=== PATIENT | female | born 2000 | race Caucasian/White ===

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

== ENCOUNTER 2020-02-18 22:49 | Inpatient (IN) | payer MEDICAID ==
[~2020-02-18] VITALS: Ht 167.6 cm; Wt 81.9 kg
[2020-02-18] MEDS ORDERED: QUEtiapine FUMARATE 100 MG TABLET PO ONE (23:45)
[2020-02-19 01:36] LABS: BASOPHILS % (AUTO) 0.4 % (0.0-2.0); EOSINOPHILS % (AUTO) 0 % (1.0-6.0); HEMATOCRIT 37.3 % (36-46); HEMOGLOBIN 12.3 g/dL (12.0-16.0); LYMPHOCYTES # (AUTO) 1.3 K/uL (1.0-4.8); MEAN CORPUSCULAR HEMOGLOBIN 30.5 pg (26.0-34.0); MEAN CORPUSCULAR HGB CONC 33.1 G/dL (31.0-37.0); MEAN CORPUSCULAR VOLUME 92 fL (80-100); MONOCYTES # (AUTO) 0.6 K/uL (0.1-1.0); MONOCYTES % (AUTO) 8.8 % (2.0-9.0); NEUTROPHILS # (AUTO) 5.2 K/uL (1.8-7.7); NEUTROPHILS % (AUTO) 72.8 % (40.0-70.0); PLATELET COUNT (AUTO) 275 K/uL (150-450); RED BLOOD CELL COUNT(AUTO) 4.04 MIL/uL (4.00-5.20); RED CELL DISTRIBUTION WIDTH 12.6 % (11.5-14.5)
[2020-02-19 01:40] LABS: ANION GAP 11 mmol/L (8-16); CALCIUM, TOTAL 8.9 mg/dL (8.8-10.5); CARBON DIOXIDE 25 mmol/L (22-29); CHLORIDE 103 mmol/L (98-107); CREATININE 0.83 mg/dL (0.60-1.30); GLOMERULAR FILTR. RATE CALC > 60 mL/min (>60); GLUCOSE,RANDOM 77 mg/dL (70-110); POTASSIUM 4.1 mmol/L (3.5-5.1); SODIUM SERUM 139 mmol/L (136-145); UREA NITROGEN, BLOOD 14 mg/dL (7-18)
[2020-02-19 01:49] LABS: ALANINE AMINOTRANSFERASE 15 U/L (12-78); ALBUMIN 3.5 g/dL (3.4-5.0); ALKALINE PHOSPHATASE 86 U/L (46-116); ASPARTATE AMINOTRANSFERASE 19 U/L (15-37); BILIRUBIN,TOTAL 0.3 mg/dL (0.1-1.0); TOTAL PROTEIN, SERUM 8.4 g/dL (6.4-8.2)
[2020-02-19 02:31] LABS: COVID AG,FIA SOURCE NASOPHARYNGEAL
[2020-02-19] MEDS ORDERED: ZOLPIDEM TARTRATE 10 MG TABLET PO PRN (04:00)
[2020-02-19 04:48] VITALS: BP 103/75
[2020-02-19 08:53] VITALS: BP 128/93
[2020-02-19] MEDS: QUEtiapine FUMARATE 200 MG TABLET PO SCH ×2 (10:37→20:19)
[2020-02-19] MEDS: CarBAMazepine 200 MG TABLET PO SCH ×2 (10:37→16:05)
[2020-02-19] MEDS: LORazepam 2 MG TABLET PO PRN (11:20)
[2020-02-19] MEDS: HALOPERIDOL 5 MG TABLET PO PRN (14:16)
[2020-02-19 16:16] VITALS: BP 116/64
[2020-02-20] MEDS: CarBAMazepine 200 MG TABLET PO SCH ×2 (08:09→16:25)
[2020-02-20] MEDS: QUEtiapine FUMARATE 200 MG TABLET PO SCH ×2 (08:09→20:24)
[2020-02-20] MEDS: LORazepam 2 MG TABLET PO PRN ×2 (08:10→17:04)
[2020-02-20 08:47] VITALS: BP 122/82
[2020-02-20 11:21] LABS: CHOL/HDL RATIO 2.9 (3.9-5.7)
[2020-02-20] MEDS: SERTRALINE HCL 50 MG TABLET PO SCH (12:27)
[2020-02-20 16:00] VITALS: BP 110/70
[2020-02-20] MEDS: HALOPERIDOL 5 MG TABLET PO PRN (17:04)
[2020-02-20 19:46] LABS: APPEARANCE,URINE CLOUDY (CLEAR); BILIRUBIN,URINE NEGATIVE (NEGATIVE); GLUCOSE, URINE (UA) NEGATIVE (NEGATIVE); KETONES,URINE NEGATIVE (NEGATIVE); LEUKOCYTE ESTERASE ,URINE NEGATIVE (NEGATIVE); NITRATE,URINE NEGATIVE (NEGATIVE); OCCULT BLOOD,URINE NEGATIVE (NEGATIVE); PROTEIN,URINE NEGATIVE (NEGATIVE); UROBILINOGEN,URINE 0.2 mg/dL (<=1.0)
[2020-02-20 19:53] LABS: AMPHET/METH SCREEN,URINE NEGATIVE (NEGATIVE); BARBITURATE SCREEN, URINE NEGATIVE (NEGATIVE); BENZODIAZEPINES SCREEN,URINE NEGATIVE (NEGATIVE); CANNABINOID SCREEN,URINE POSITIVE (NEGATIVE); COCAINE SCREEN,URINE NEGATIVE (NEGATIVE); METHADONE SCREEN, URINE NEGATIVE (NEGATIVE); OPIATE SCREEN,URINE NEGATIVE (NEGATIVE)
[2020-02-20 19:57] LABS: PHENCYCLIDINE SCREEN,URINE NEGATIVE (NEGATIVE)
[2020-02-21] MEDS: LORazepam 2 MG TABLET PO PRN ×2 (07:08→16:07)
[2020-02-21 08:01] VITALS: BP 107/76
[2020-02-21] MEDS: HALOPERIDOL 5 MG TABLET PO PRN ×2 (08:02→16:07)
[2020-02-21] MEDS: QUEtiapine FUMARATE 200 MG TABLET PO SCH ×2 (08:02→20:22)
[2020-02-21] MEDS: SERTRALINE HCL 50 MG TABLET PO SCH (08:02)
[2020-02-21] MEDS: CarBAMazepine 200 MG TABLET PO SCH ×2 (08:03→16:07)
[2020-02-21 16:13] VITALS: BP 117/76
[2020-02-22] MEDS: QUEtiapine FUMARATE 200 MG TABLET PO SCH (07:45)
[2020-02-22] MEDS: SERTRALINE HCL 50 MG TABLET PO SCH (07:45)
[2020-02-22] MEDS: CarBAMazepine 200 MG TABLET PO SCH ×2 (07:45→16:05)
[2020-02-22 08:00] VITALS: BP 119/83
[2020-02-22] MEDS: HALOPERIDOL 5 MG TABLET PO PRN ×2 (09:48→17:37)
[2020-02-22] MEDS: LORazepam 2 MG TABLET PO PRN ×2 (10:13→17:37)
[2020-02-22 16:00] VITALS: BP 124/74
[2020-02-22] MEDS: QUEtiapine FUMARATE 300 MG TABLET PO SCH (20:46)
[2020-02-23] MEDS: CarBAMazepine 200 MG TABLET PO SCH (08:07)
[2020-02-23] MEDS: SERTRALINE HCL 50 MG TABLET PO SCH (08:07)
[2020-02-23] MEDS: QUEtiapine FUMARATE 300 MG TABLET PO SCH (08:08)
[2020-02-23] MEDS: LORazepam 2 MG TABLET PO PRN (08:08)
[2020-02-23] MEDS: HALOPERIDOL 5 MG TABLET PO PRN (08:08)
[2020-02-23 08:39] VITALS: BP 126/86
[2020-02-23] MEDS ORDERED: QUET300T2 PO (11:30)
[2020-02-23] MEDS ORDERED: SERT50TA12 PO (11:31)
== END 2020-02-23 13:15 | disposition left against medical advice (07) | DRG 753 ==
LOC: EMS 22:49 → 3EI 02-19 04:00 → 3EC 02-20 17:15
PROVIDERS: ADMIT Psychiatry & Neurology Child & Adolescent Psychiatry; ATTEND Psychiatry & Neurology Child & Adolescent Psychiatry
DX: F31.2 Bipolar disorder, current episode manic severe with psychotic features (principal); Z91.19 Patient's noncompliance with other medical treatment and regimen; F41.9 Anxiety disorder, unspecified; F12.90 Cannabis use, unspecified, uncomplicated; F10.10 Alcohol abuse, uncomplicated; Y90.9 Presence of alcohol in blood, level not specified; Z59.0 Homelessness; Z20.822 Contact with and (suspected) exposure to COVID-19
CPT/HCPCS: 80307; 87081; 87426; G0480

== ENCOUNTER 2020-03-07 11:17 | Inpatient (IN) | payer MEDICAID ==
[~2020-03-07] VITALS: Ht 157.5 cm; Wt 83.0 kg
[~2020-03-07 11:17] MED LIST changes: -LITH300C3 PO; -QUET100T PO; +QUET300T2 PO; +SERT-158 PO
[2020-03-07] MEDS ORDERED: CARB-60 PO (11:52)
[2020-03-07] MEDS ORDERED: CarBAMazepine 200 MG TABLET PO ONE (12:00)
[2020-03-07 12:12] LABS: BASOPHILS % (AUTO) 0.4 % (0.0-2.0); EOSINOPHILS % (AUTO) 0.1 % (1.0-6.0); HEMATOCRIT 36.2 % (36-46); HEMOGLOBIN 12.3 g/dL (12.0-16.0); LYMPHOCYTES # (AUTO) 2.3 K/uL (1.0-4.8); LYMPHOCYTES % (AUTO) 29.6 % (22.0-44.0); MEAN CORPUSCULAR HEMOGLOBIN 31.6 pg (26.0-34.0); MEAN CORPUSCULAR VOLUME 93 fL (80-100); MONOCYTES # (AUTO) 0.6 K/uL (0.1-1.0); MONOCYTES % (AUTO) 7.7 % (2.0-9.0); NEUTROPHILS # (AUTO) 4.8 K/uL (1.8-7.7); NEUTROPHILS % (AUTO) 62.2 % (40.0-70.0); PLATELET COUNT (AUTO) 271 K/uL (150-450); RED BLOOD CELL COUNT(AUTO) 3.89 MIL/uL (4.00-5.20); RED CELL DISTRIBUTION WIDTH 13.7 % (11.5-14.5)
[2020-03-07 12:21] LABS: ANION GAP 9 mmol/L (8-16); CALCIUM, TOTAL 8.5 mg/dL (8.8-10.5); CARBON DIOXIDE 24 mmol/L (22-29); CHLORIDE 103 mmol/L (98-107); CREATININE 0.83 mg/dL (0.60-1.30); GLOMERULAR FILTR. RATE CALC > 60 mL/min (>60); GLUCOSE,RANDOM 90 mg/dL (70-110); POTASSIUM 3.4 mmol/L (3.5-5.1); SODIUM SERUM 136 mmol/L (136-145); UREA NITROGEN, BLOOD 8 mg/dL (7-18)
[2020-03-07 12:27] LABS: ALANINE AMINOTRANSFERASE 31 U/L (12-78); ALBUMIN 3.6 g/dL (3.4-5.0); ALKALINE PHOSPHATASE 83 U/L (46-116); ASPARTATE AMINOTRANSFERASE 30 U/L (15-37); BILIRUBIN,TOTAL 0.4 mg/dL (0.1-1.0); TOTAL PROTEIN, SERUM 8.1 g/dL (6.4-8.2)
[2020-03-07 12:39] LABS: CARBAMAZEPINE (TEGRETOL) < 0.5 mcg/mL (4.0-12.0)
[2020-03-07] MEDS ORDERED: LORazepam 2 MG TABLET PO ONE (13:00)
[2020-03-07 13:05] LABS: COVID AG,FIA SOURCE NASOPHARYNGEAL
[2020-03-07] MEDS ORDERED: DiphenhydrAMINE HCL 50 MG/ML VIAL IM ONE (13:15)
[2020-03-07] MEDS ORDERED: LORazepam 2 MG/ML VIAL IM ONE (13:15)
[2020-03-07] MEDS ORDERED: HALOPERIDOL LACTATE 5 MG/ML VIAL IM ONE (13:15)
[2020-03-07 13:29] LABS: AMPHET/METH SCREEN,URINE NEGATIVE (NEGATIVE); BARBITURATE SCREEN, URINE NEGATIVE (NEGATIVE); BENZODIAZEPINES SCREEN,URINE NEGATIVE (NEGATIVE); CANNABINOID SCREEN,URINE POSITIVE (NEGATIVE); COCAINE SCREEN,URINE NEGATIVE (NEGATIVE); METHADONE SCREEN, URINE NEGATIVE (NEGATIVE); OPIATE SCREEN,URINE NEGATIVE (NEGATIVE); PHENCYCLIDINE SCREEN,URINE NEGATIVE (NEGATIVE)
[2020-03-07] MEDS ORDERED: HALOPERIDOL 5 MG TABLET PO PRN (13:30)
[2020-03-07] MEDS ORDERED: ZOLPIDEM TARTRATE 10 MG TABLET PO PRN (13:30)
[2020-03-07 14:04] LABS: BILIRUBIN,URINE NEGATIVE (NEGATIVE); GLUCOSE, URINE (UA) NEGATIVE (NEGATIVE); KETONES,URINE 40 mg/dL (NEGATIVE); LEUKOCYTE ESTERASE ,URINE NEGATIVE (NEGATIVE); NITRATE,URINE NEGATIVE (NEGATIVE); OCCULT BLOOD,URINE NEGATIVE (NEGATIVE); UROBILINOGEN,URINE 0.2 mg/dL (<=1.0)
[2020-03-07 14:07] LABS: APPEARANCE,URINE CLEAR (CLEAR); PROTEIN,URINE NEGATIVE (NEGATIVE)
[2020-03-07 17:34] VITALS: BP 110/68
[2020-03-07] MEDS ORDERED: POTASSIUM CHLORIDE 20 MEQ ER TABLET PO ONE (18:15)
[2020-03-08] MEDS ORDERED: PETROLATUM,WHITE 28 GM JELLY TP PRN (07:00)
[2020-03-08] MEDS ORDERED: LOPERAMIDE HCL 2 MG CAPSULE PO PRN (07:00)
[2020-03-08] MEDS ORDERED: DOCUSATE SODIUM 100 MG CAPSULE PO PRN (07:00)
[2020-03-08] MEDS ORDERED: ALBUTEROL SULFATE HFA 90 MCG/PUFF 8 GM INHALER IH PRN (07:00)
[2020-03-08] MEDS ORDERED: ACETAMINOPHEN 325 MG TABLET PO PRN (07:00)
[2020-03-08] MEDS ORDERED: GuaiFENesin/D-METHORPHAN [SUGAR-FREE] 200-20MG/10 ML SYRUP UDCUP PO PRN (07:00)
[2020-03-08] MEDS ORDERED: MAG HYDROX/AL HYDROX/SIMETH ES 30 ML SUSPENSION UDCUP PO PRN (07:00)
[2020-03-08] MEDS ORDERED: ONDANSETRON HCL 4 MG TABLET PO PRN (07:00)
[2020-03-08] MEDS ORDERED: NICOTINE 14 MG/24 HOUR PATCH TD PRN (07:00)
[2020-03-08] MEDS ORDERED: CloNIDine HCL 0.1 MG TABLET PO PRN (07:00)
[2020-03-08 07:38] LABS: CHOL/HDL RATIO 2.6 (3.9-5.7); POTASSIUM 3.6 mmol/L (3.5-5.1)
[2020-03-08 08:00] VITALS: BP 93/59
[2020-03-08] MEDS: CarBAMazepine 200 MG ER TABLET PO SCH ×2 (10:27→16:11)
[2020-03-08] MEDS: QUEtiapine FUMARATE 200 MG TABLET PO SCH (12:57)
[2020-03-08] MEDS: SERTRALINE HCL 50 MG TABLET PO SCH (12:57)
[2020-03-08 16:00] VITALS: BP 109/65
[2020-03-08] MEDS ORDERED: QUEtiapine FUMARATE 200 MG TABLET PO SCH (21:00)
[2020-03-09 08:00] VITALS: BP 107/70
[2020-03-09] MEDS: CarBAMazepine 200 MG ER TABLET PO SCH ×2 (08:36→16:31)
[2020-03-09] MEDS: SERTRALINE HCL 50 MG TABLET PO SCH (08:36)
[2020-03-09] MEDS: IBUPROFEN 400 MG TABLET PO PRN (08:45)
[2020-03-09] MEDS: MAGNESIUM HYDROXIDE SUSPENSION 30 ML UDCUP PO PRN (08:45)
[2020-03-09] MEDS: QUEtiapine FUMARATE 200 MG TABLET PO SCH (09:42)
[2020-03-09] MEDS: LORazepam 2 MG TABLET PO PRN (14:42)
[2020-03-09 16:39] VITALS: BP 115/61
[2020-03-09] MEDS: QUEtiapine FUMARATE 300 MG TABLET PO SCH (20:20)
[2020-03-10 08:00] VITALS: BP 123/77
[2020-03-10] MEDS: CarBAMazepine 200 MG ER TABLET PO SCH ×2 (08:51→16:15)
[2020-03-10] MEDS: SERTRALINE HCL 50 MG TABLET PO SCH (08:51)
[2020-03-10] MEDS: LamoTRIgine 25 MG TABLET PO SCH (08:51)
[2020-03-10] MEDS: LORazepam 2 MG TABLET PO PRN (16:17)
[2020-03-10 17:16] VITALS: BP 138/75
[2020-03-10] MEDS: QUEtiapine FUMARATE 300 MG TABLET PO SCH (20:58)
[2020-03-11] MEDS: CarBAMazepine 200 MG ER TABLET PO SCH ×2 (07:41→16:18)
[2020-03-11] MEDS: SERTRALINE HCL 50 MG TABLET PO SCH (07:41)
[2020-03-11] MEDS: LamoTRIgine 25 MG TABLET PO SCH (07:41)
[2020-03-11 08:00] VITALS: BP 102/64
[2020-03-11 16:00] VITALS: BP 125/79
[2020-03-11] MEDS: QUEtiapine FUMARATE 300 MG TABLET PO SCH (20:53)
[2020-03-11] MEDS: LORazepam 2 MG TABLET PO PRN (21:33)
[2020-03-12 00:22] VITALS: BP 124/78
[2020-03-12] MEDS: CarBAMazepine 200 MG ER TABLET PO SCH ×2 (08:56→17:11)
[2020-03-12] MEDS: SERTRALINE HCL 50 MG TABLET PO SCH (08:56)
[2020-03-12] MEDS: LamoTRIgine 25 MG TABLET PO SCH (08:56)
[2020-03-12 09:20] VITALS: BP 111/68
[2020-03-12] MEDS: LORazepam 2 MG TABLET PO PRN (09:36)
[2020-03-12 17:13] VITALS: BP 108/66
[2020-03-12] MEDS: QUEtiapine FUMARATE 300 MG TABLET PO SCH (21:27)
[2020-03-13 08:17] VITALS: BP 108/72
[2020-03-13] MEDS: LamoTRIgine 25 MG TABLET PO SCH (08:41)
[2020-03-13] MEDS: CarBAMazepine 200 MG ER TABLET PO SCH ×2 (08:41→16:25)
[2020-03-13] MEDS: SERTRALINE HCL 50 MG TABLET PO SCH (08:41)
[2020-03-13] MEDS ORDERED: LamoTRIgine 25 MG TABLET PO SCH (10:00)
[2020-03-13 12:31] LABS: COVID AG,FIA SOURCE NASOPHARYNGEAL
[2020-03-13] MEDS ORDERED: LamoTRIgine 25 MG TABLET PO ONE (13:00)
[2020-03-13] MEDS: MAGNESIUM HYDROXIDE SUSPENSION 30 ML UDCUP PO PRN (14:05)
[2020-03-13 16:30] VITALS: BP 133/82
[2020-03-13] MEDS: QUEtiapine FUMARATE 300 MG TABLET PO SCH (21:47)
[2020-03-14 08:00] VITALS: BP 120/74
[2020-03-14] MEDS: CarBAMazepine 200 MG ER TABLET PO SCH ×2 (08:06→16:02)
[2020-03-14] MEDS: SERTRALINE HCL 50 MG TABLET PO SCH (08:06)
[2020-03-14] MEDS: LamoTRIgine 25 MG TABLET PO SCH (08:06)
[2020-03-14 16:00] VITALS: BP 112/71
[2020-03-14] MEDS: LORazepam 2 MG TABLET PO PRN (17:48)
[2020-03-14] MEDS: QUEtiapine FUMARATE 300 MG TABLET PO SCH (21:51)
[2020-03-15] MEDS: CarBAMazepine 200 MG ER TABLET PO SCH ×2 (08:13→16:32)
[2020-03-15] MEDS: SERTRALINE HCL 50 MG TABLET PO SCH (08:13)
[2020-03-15] MEDS: LamoTRIgine 25 MG TABLET PO SCH (08:13)
[2020-03-15 09:00] VITALS: BP 122/74
[2020-03-15 16:27] VITALS: BP 112/70
[2020-03-15] MEDS: LORazepam 2 MG TABLET PO PRN (19:02)
[2020-03-15] MEDS: QUEtiapine FUMARATE 300 MG TABLET PO SCH (20:51)
[2020-03-16] MEDS: LamoTRIgine 25 MG TABLET PO SCH (08:01)
[2020-03-16] MEDS: SERTRALINE HCL 50 MG TABLET PO SCH (08:01)
[2020-03-16] MEDS: CarBAMazepine 200 MG ER TABLET PO SCH ×2 (08:01→16:32)
[2020-03-16 08:08] VITALS: BP 116/76
[2020-03-16 16:31] VITALS: BP 101/60
[2020-03-16] MEDS: QUEtiapine FUMARATE 300 MG TABLET PO SCH (20:21)
[2020-03-17 08:00] VITALS: BP 112/77
[2020-03-17] MEDS: LamoTRIgine 25 MG TABLET PO SCH (09:36)
[2020-03-17] MEDS: CarBAMazepine 200 MG ER TABLET PO SCH ×2 (09:36→16:07)
[2020-03-17] MEDS: SERTRALINE HCL 50 MG TABLET PO SCH (09:36)
[2020-03-17] MEDS: LORazepam 2 MG TABLET PO PRN (09:41)
[2020-03-17 16:08] VITALS: BP 103/63
[2020-03-17] MEDS: QUEtiapine FUMARATE 300 MG TABLET PO SCH (22:06)
[2020-03-18] MEDS: LamoTRIgine 25 MG TABLET PO SCH (07:53)
[2020-03-18] MEDS: CarBAMazepine 200 MG ER TABLET PO SCH ×2 (07:53→16:16)
[2020-03-18] MEDS: SERTRALINE HCL 50 MG TABLET PO SCH (07:53)
[2020-03-18 08:00] VITALS: BP_SYST 106; BP_SYST 82; BP_DIAS 63; BP_DIAS 64
[2020-03-18 16:17] VITALS: BP 111/71
[2020-03-18] MEDS: QUEtiapine FUMARATE 300 MG TABLET PO SCH (21:00)
[2020-03-19 08:00] VITALS: BP 120/79
[2020-03-19] MEDS: CarBAMazepine 200 MG ER TABLET PO SCH ×2 (10:23→16:35)
[2020-03-19] MEDS: LamoTRIgine 25 MG TABLET PO SCH (10:23)
[2020-03-19] MEDS: SERTRALINE HCL 50 MG TABLET PO SCH (10:23)
[2020-03-19] MEDS ORDERED: DiphenhydrAMINE HCL 25 MG CAPSULE PO PRN (10:30)
[2020-03-19 16:22] VITALS: BP 103/65
[2020-03-19] MEDS: QUEtiapine FUMARATE 300 MG TABLET PO SCH (21:12)
[2020-03-20] MEDS: LamoTRIgine 25 MG TABLET PO SCH (08:42)
[2020-03-20] MEDS: CarBAMazepine 200 MG ER TABLET PO SCH ×2 (08:42→16:03)
[2020-03-20] MEDS: SERTRALINE HCL 50 MG TABLET PO SCH (08:42)
[2020-03-20 10:11] LABS: COVID AG,FIA SOURCE NASOPHARYNGEAL
[2020-03-20 16:07] VITALS: BP 116/86
[2020-03-20] MEDS: QUEtiapine FUMARATE 300 MG TABLET PO SCH (21:59)
[2020-03-21 08:24] VITALS: BP 106/67
[2020-03-21] MEDS: LamoTRIgine 25 MG TABLET PO SCH (09:24)
[2020-03-21] MEDS: SERTRALINE HCL 50 MG TABLET PO SCH (09:24)
[2020-03-21] MEDS: CarBAMazepine 200 MG ER TABLET PO SCH ×2 (09:24→16:03)
[2020-03-21 16:13] VITALS: BP 109/70
[2020-03-21] MEDS: QUEtiapine FUMARATE 300 MG TABLET PO SCH (22:07)
[2020-03-22 08:00] VITALS: BP 120/79
[2020-03-22] MEDS: CarBAMazepine 200 MG ER TABLET PO SCH ×2 (09:41→16:04)
[2020-03-22] MEDS: LamoTRIgine 25 MG TABLET PO SCH (09:41)
[2020-03-22] MEDS: SERTRALINE HCL 50 MG TABLET PO SCH (09:43)
[2020-03-22 16:00] VITALS: BP 116/77
[2020-03-22] MEDS: QUEtiapine FUMARATE 300 MG TABLET PO SCH (22:00)
[2020-03-23 08:00] VITALS: BP 105/74
[2020-03-23] MEDS: SERTRALINE HCL 50 MG TABLET PO SCH (09:09)
[2020-03-23] MEDS: CarBAMazepine 200 MG ER TABLET PO SCH (09:09)
[2020-03-23] MEDS: LamoTRIgine 25 MG TABLET PO SCH (09:09)
[2020-03-23] MEDS ORDERED: LAMO25TA25 PO (09:11)
[2020-03-23] MEDS ORDERED: QUET300T2 PO (09:12)
[2020-03-23] MEDS ORDERED: SERT-158 PO (09:12)
[2020-03-23 10:28] VITALS: BP 104/78
[2020-03-23] MEDS: IBUPROFEN 400 MG TABLET PO PRN (10:28)
== END 2020-03-23 13:50 | disposition home or self-care (01) | DRG 753 ==
LOC: EMS 11:17 → 3EC 13:27
PROVIDERS: ADMIT Psychiatry & Neurology Child & Adolescent Psychiatry; ATTEND Psychiatry & Neurology Child & Adolescent Psychiatry
DX: F31.2 Bipolar disorder, current episode manic severe with psychotic features (principal); F41.9 Anxiety disorder, unspecified; G40.909 Epilepsy, unspecified, not intractable, without status epilepticus; Z88.8 Allergy status to other drugs, medicaments and biological substances; E87.6 Hypokalemia; I95.9 Hypotension, unspecified; F12.10 Cannabis abuse, uncomplicated; Z59.0 Homelessness; E32.8 Other diseases of thymus; Z20.822 Contact with and (suspected) exposure to COVID-19
CPT/HCPCS: 84132; 87081; 87426; 99291; G0480; J1200; J1630; J2060

== ENCOUNTER 2020-07-14 19:23 | Emergency (ER) | payer MEDICAID ==
[~2020-07-14] VITALS: Ht 167.6 cm; Wt 78.6 kg
[~2020-07-14 19:23] MED LIST changes: +CARB-60 PO; +LAMO25TA25 PO
[2020-07-14 19:48] VITALS: BP 118/69
[2020-07-14] MEDS ORDERED: QUET200T5 PO (20:13)
[2020-07-14] MEDS ORDERED: CefTRIAXone SODIUM 1 GM/VIAL IM ONE (20:15)
[2020-07-14] MEDS ORDERED: LIDOCAINE/PF 1% 2 ML VIAL IM ONE (20:15)
[2020-07-14] MEDS ORDERED: AZITHROMYCIN 500 MG TABLET PO ONE (20:15)
[2020-07-14 20:31] LABS: APPEARANCE,URINE CLOUDY (CLEAR); BILIRUBIN,URINE NEGATIVE (NEGATIVE); GLUCOSE, URINE (UA) NEGATIVE (NEGATIVE); KETONES,URINE NEGATIVE (NEGATIVE); LEUKOCYTE ESTERASE ,URINE TRACE (NEGATIVE); NITRATE,URINE NEGATIVE (NEGATIVE); OCCULT BLOOD,URINE LARGE (NEGATIVE); PH,URINE 5.5 (5.0-8.0); PROTEIN,URINE NEGATIVE (NEGATIVE); UROBILINOGEN,URINE 0.2 mg/dL (<=1.0)
[2020-07-14 20:38] LABS: BACTERIA,URINE Few /HPF (None Seen); SQUAMOUS EPITHELIAL CELL,UR Few /LPF (None Seen)
== END 2020-07-14 20:26 | disposition home or self-care (01) ==
LOC: EMS 19:27
DX: Z11.3 Encounter for screening for infections with a predominantly sexual mode of transmission (principal); F31.9 Bipolar disorder, unspecified; Z88.8 Allergy status to other drugs, medicaments and biological substances
CPT/HCPCS: 81001; 81025; 87086; 87491; 87591; 96372; 99283; A9575; J0696; J3490

== ENCOUNTER 2020-11-08 17:01 | Emergency (ER) | payer MEDICAID ==
[~2020-11-08] VITALS: Ht 167.6 cm; Wt 78.6 kg
[~2020-11-08 17:01] MED LIST changes: +QUET200T5 PO; -QUET300T2 PO
[2020-11-08 17:43] VITALS: BP 106/53
== END 2020-11-08 19:28 | disposition home or self-care (01) ==
LOC: EMS 17:01
DX: L03.115 Cellulitis of right lower limb (principal)
CPT/HCPCS: 99283; Z7502

== ENCOUNTER 2021-03-02 21:01 | Emergency (ER) | payer MEDICAID ==
[~2021-03-02] VITALS: Ht 167.6 cm; Wt 86.4 kg
[2021-03-02 21:07] VITALS: BP 99/60
== END 2021-03-03 00:21 | disposition left against medical advice (07) ==
LOC: EMS 21:02
DX: R10.2 Pelvic and perineal pain (principal); Z53.21 Procedure and treatment not carried out due to patient leaving prior to being seen by health care provider

== ENCOUNTER 2021-06-06 20:17 | Emergency (ER) | payer MEDICAID ==
[~2021-06-06] VITALS: Ht 167.6 cm; Wt 86.4 kg
[2021-06-06] MEDS ORDERED: TOPI25 PO (20:34)
[2021-06-06 23:30] VITALS: BP 125/78
[2021-06-06] MEDS ORDERED: ACETAMINOPHEN 500 MG TABLET PO ONE (23:45)
== END 2021-06-07 00:42 | disposition home or self-care (01) ==
LOC: EMS 20:20
DX: M54.50 Low back pain, unspecified (principal); N64.52 Nipple discharge; F31.9 Bipolar disorder, unspecified; Z88.8 Allergy status to other drugs, medicaments and biological substances
CPT/HCPCS: 87491; 87591; 99283

== ENCOUNTER 2021-06-09 17:37 | Emergency (ER) | payer MEDICAID ==
[~2021-06-09] VITALS: Ht 154.9 cm; Wt 90.9 kg
[~2021-06-09 17:37] MED LIST changes: -SERT-158 PO; +TOPI25 PO
[2021-06-09 17:56] VITALS: BP 148/88
[2021-06-09 18:35] LABS: BASOPHILS % (AUTO) 0.3 % (0.0-2.0); EOSINOPHILS % (AUTO) 0.1 % (1.0-6.0); HEMATOCRIT 36.3 % (36-46); HEMOGLOBIN 12.4 g/dL (12.0-16.0); LYMPHOCYTES # (AUTO) 1.4 K/uL (1.0-4.8); LYMPHOCYTES % (AUTO) 34.7 % (22.0-44.0); MEAN CORPUSCULAR HEMOGLOBIN 30.6 pg (26.0-34.0); MEAN CORPUSCULAR HGB CONC 34.2 G/dL (31.0-37.0); MEAN CORPUSCULAR VOLUME 90 fL (80-100); MONOCYTES # (AUTO) 0.5 K/uL (0.1-1.0); MONOCYTES % (AUTO) 11.5 % (2.0-9.0); NEUTROPHILS # (AUTO) 2.1 K/uL (1.8-7.7); NEUTROPHILS % (AUTO) 53.4 % (40.0-70.0); PLATELET COUNT (AUTO) 283 K/uL (150-450); RED BLOOD CELL COUNT(AUTO) 4.05 MIL/uL (4.00-5.20); RED CELL DISTRIBUTION WIDTH 13.4 % (11.5-14.5)
[2021-06-09 18:43] LABS: ANION GAP 7 mmol/L (8-16); CALCIUM, TOTAL 8.7 mg/dL (8.8-10.5); CARBON DIOXIDE 28 mmol/L (22-29); CHLORIDE 102 mmol/L (98-107); CREATININE 0.67 mg/dL (0.60-1.30); GLOMERULAR FILTR. RATE CALC > 60 mL/min (>60); GLUCOSE,RANDOM 87 mg/dL (70-110); POTASSIUM 3.2 mmol/L (3.5-5.1); SODIUM SERUM 137 mmol/L (136-145); UREA NITROGEN, BLOOD 7 mg/dL (7-18)
[2021-06-09 18:56] LABS: ALANINE AMINOTRANSFERASE 23 U/L (12-78); ALBUMIN 3.7 g/dL (3.4-5.0); ALKALINE PHOSPHATASE 97 U/L (46-116); ASPARTATE AMINOTRANSFERASE 20 U/L (15-37); BILIRUBIN,TOTAL 0.2 mg/dL (0.1-1.0); HCG,QUANTITATIVE < 1 mIU/mL (0-6)
== END 2021-06-09 20:05 | disposition home or self-care (01) ==
LOC: EMS 17:40
DX: R06.02 Shortness of breath (principal); J45.909 Unspecified asthma, uncomplicated; F31.9 Bipolar disorder, unspecified; F17.210 Nicotine dependence, cigarettes, uncomplicated; F12.90 Cannabis use, unspecified, uncomplicated; Z86.69 Personal history of other diseases of the nervous system and sense organs; Z88.8 Allergy status to other drugs, medicaments and biological substances
CPT/HCPCS: 71045; 80053; 84484; 84702; 85025; 93005; 99285; 36415-L1; 36415-TC

== ENCOUNTER 2021-06-14 02:03 | Emergency (ER) | payer MEDICAID ==
[~2021-06-14] VITALS: Ht 154.9 cm; Wt 90.9 kg
[2021-06-14] MEDS ORDERED: ALBU8HFA IH (02:21)
[2021-06-14 03:15] VITALS: BP 119/67
[2021-06-14] MEDS ORDERED: QUEtiapine FUMARATE 100 MG TABLET PO ONE (03:30)
[2021-06-14] MEDS ORDERED: CarBAMazepine 200 MG ER TABLET PO ONE (03:30)
== END 2021-06-14 03:44 | disposition home or self-care (01) ==
LOC: EMS 02:05
DX: F31.9 Bipolar disorder, unspecified (principal); J45.909 Unspecified asthma, uncomplicated; F17.211 Nicotine dependence, cigarettes, in remission; F17.210 Nicotine dependence, cigarettes, uncomplicated; Z76.0 Encounter for issue of repeat prescription; Z88.8 Allergy status to other drugs, medicaments and biological substances
CPT/HCPCS: 99283

== ENCOUNTER 2021-07-26 09:21 | Inpatient (IN) | payer MEDICAID ==
[~2021-07-26] VITALS: Ht 167.6 cm; Wt 74.6 kg
[~2021-07-26 09:21] MED LIST changes: +ALBU8HFA IH; -LAMO25TA25 PO
[2021-07-26] MEDS ORDERED: HALOPERIDOL LACTATE 5 MG/ML VIAL IM ONE (10:00)
[2021-07-26] MEDS ORDERED: LORazepam 2 MG/ML VIAL IM ONE (10:00)
[2021-07-26] MEDS ORDERED: DiphenhydrAMINE HCL 50 MG/ML VIAL IM ONE (10:00)
[2021-07-26] MEDS ORDERED: LORazepam 2 MG/ML VIAL ONE (10:02)
[2021-07-26] MEDS ORDERED: HALOPERIDOL LACTATE 5 MG/ML VIAL ONE (10:02)
[2021-07-26] MEDS ORDERED: DiphenhydrAMINE HCL 50 MG/ML VIAL ONE (10:02)
[2021-07-26 10:17] LABS: BASOPHILS % (AUTO) 0.8 % (0.0-2.0); EOSINOPHILS % (AUTO) 0.6 % (1.0-6.0); HEMATOCRIT 35.6 % (36-46); HEMOGLOBIN 12.3 g/dL (12.0-16.0); LYMPHOCYTES # (AUTO) 2.1 K/uL (1.0-4.8); LYMPHOCYTES % (AUTO) 46.9 % (22.0-44.0); MEAN CORPUSCULAR HEMOGLOBIN 30.5 pg (26.0-34.0); MEAN CORPUSCULAR HGB CONC 34.4 G/dL (31.0-37.0); MEAN CORPUSCULAR VOLUME 89 fL (80-100); MONOCYTES # (AUTO) 0.3 K/uL (0.1-1.0); MONOCYTES % (AUTO) 7.6 % (2.0-9.0); NEUTROPHILS % (AUTO) 44.1 % (40.0-70.0); PLATELET COUNT (AUTO) 288 K/uL (150-450); RED BLOOD CELL COUNT(AUTO) 4.02 MIL/uL (4.00-5.20); RED CELL DISTRIBUTION WIDTH 13.2 % (11.5-14.5)
[2021-07-26 10:26] LABS: ANION GAP 6 mmol/L (8-16); CALCIUM, TOTAL 8.7 mg/dL (8.8-10.5); CARBON DIOXIDE 28 mmol/L (22-29); CHLORIDE 104 mmol/L (98-107); CREATININE 0.73 mg/dL (0.60-1.30); GLOMERULAR FILTR. RATE CALC > 60 mL/min (>60); GLUCOSE,RANDOM 80 mg/dL (70-110); POTASSIUM 3.5 mmol/L (3.5-5.1); SODIUM SERUM 138 mmol/L (136-145); UREA NITROGEN, BLOOD 8 mg/dL (7-18)
[2021-07-26 10:28] LABS: COVID AG,FIA SOURCE NASOPHARYNGEAL
[2021-07-26 10:33] LABS: ALANINE AMINOTRANSFERASE 26 U/L (12-78); ALBUMIN 3.4 g/dL (3.4-5.0); ALKALINE PHOSPHATASE 78 U/L (46-116); ASPARTATE AMINOTRANSFERASE 20 U/L (15-37); BILIRUBIN,TOTAL 0.4 mg/dL (0.1-1.0); TOTAL PROTEIN, SERUM 7.8 g/dL (6.4-8.2)
[2021-07-26 10:43] LABS: AMPHET/METH SCREEN,URINE NEGATIVE (NEGATIVE); BARBITURATE SCREEN, URINE NEGATIVE (NEGATIVE); BENZODIAZEPINES SCREEN,URINE NEGATIVE (NEGATIVE); CANNABINOID SCREEN,URINE POSITIVE (NEGATIVE); COCAINE SCREEN,URINE NEGATIVE (NEGATIVE); METHADONE SCREEN, URINE NEGATIVE (NEGATIVE); OPIATE SCREEN,URINE NEGATIVE (NEGATIVE)
[2021-07-26 10:56] LABS: HCG,QUANTITATIVE 8 mIU/mL (0-6); THYROID STIMULATING HORMONE 0.67 uIU/mL (0.36-3.74)
[2021-07-26 10:56] LABS: PHENCYCLIDINE SCREEN,URINE NEGATIVE (NEGATIVE)
[2021-07-26 18:16] VITALS: BP 121/84
[2021-07-26] MEDS ORDERED: HydrOXYzine PAMOATE 25 MG CAPSULE PO ONE (19:00)
[2021-07-26] MEDS ORDERED: BACITRACIN 28 GM OINTMENT TP PRN (20:30)
[2021-07-26] MEDS ORDERED: OMEPRAZOLE 20 MG CAPSULE PO PRN (20:30)
[2021-07-26] MEDS ORDERED: CloNIDine HCL 0.1 MG TABLET PO PRN (20:30)
[2021-07-26] MEDS ORDERED: PETROLATUM,WHITE 28 GM JELLY TP PRN (20:30)
[2021-07-26] MEDS ORDERED: ONDANSETRON HCL 4 MG TABLET PO PRN (20:30)
[2021-07-26] MEDS ORDERED: BENZOCAINE/MENTHOL LOZENGE PO PRN (20:30)
[2021-07-26] MEDS ORDERED: MAG HYDROX/AL HYDROX/SIMETH ES 30 ML SUSPENSION UDCUP PO PRN (20:30)
[2021-07-26] MEDS ORDERED: DOCUSATE SODIUM 100 MG CAPSULE PO PRN (20:30)
[2021-07-26] MEDS ORDERED: LOPERAMIDE HCL 2 MG CAPSULE PO PRN (20:30)
[2021-07-26] MEDS ORDERED: MAGNESIUM HYDROXIDE SUSPENSION 30 ML UDCUP PO PRN (20:30)
[2021-07-27 08:39] VITALS: BP 99/74
[2021-07-27] MEDS: IBUPROFEN 600 MG TABLET PO PRN (08:58)
[2021-07-27] MEDS: ALBUTEROL SULFATE HFA 90 MCG/PUFF 8 GM INHALER IH PRN ×2 (10:38→20:25)
[2021-07-27 16:33] VITALS: BP 115/74
[2021-07-27] MEDS: CarBAMazepine 200 MG ER TABLET PO SCH (16:36)
[2021-07-27] MEDS: TOPIRAMATE 25 MG TABLET PO SCH (16:36)
[2021-07-27] MEDS ORDERED: DIVALPROEX SODIUM 500 MG DR TABLET PO SCH (17:00)
[2021-07-27] MEDS ORDERED: DiphenhydrAMINE HCL 25 MG CAPSULE PO ONE (18:30)
[2021-07-27] MEDS ORDERED: DiphenhydrAMINE HCL 50 MG/ML VIAL IM ONE (20:45)
[2021-07-27] MEDS ORDERED: HALOPERIDOL LACTATE 5 MG/ML VIAL IM ONE (20:45)
[2021-07-27 23:17] VITALS: BP 100/70
[2021-07-28 05:31] VITALS: BP 111/68
[2021-07-28] MEDS: ALBUTEROL SULFATE HFA 90 MCG/PUFF 8 GM INHALER IH PRN (06:40)
[2021-07-28] MEDS: TOPIRAMATE 25 MG TABLET PO SCH ×2 (08:39→16:35)
[2021-07-28 08:51] VITALS: BP 110/68
[2021-07-28] MEDS: CarBAMazepine 200 MG ER TABLET PO SCH ×2 (09:00→16:34)
[2021-07-28 13:14] LABS: APPEARANCE,URINE CLEAR (CLEAR); BILIRUBIN,URINE NEGATIVE (NEGATIVE); GLUCOSE, URINE (UA) NEGATIVE (NEGATIVE); KETONES,URINE NEGATIVE (NEGATIVE); LEUKOCYTE ESTERASE ,URINE TRACE (NEGATIVE); NITRATE,URINE NEGATIVE (NEGATIVE); OCCULT BLOOD,URINE LARGE (NEGATIVE); PH,URINE 7.5 (5.0-8.0); PROTEIN,URINE NEGATIVE (NEGATIVE); SPECIFIC GRAVITIY, URINE 1.005 (1.003-1.030); UROBILINOGEN,URINE <=1.0 mg/dL (<=1.0)
[2021-07-28 13:37] LABS: BACTERIA,URINE None Seen /HPF (None Seen); RBC,URINE None Seen /HPF (0-2); SQUAMOUS EPITHELIAL CELL,UR Rare /LPF (None Seen)
[2021-07-28 16:04] VITALS: BP 101/68
[2021-07-28] MEDS ORDERED: DIVALPROEX SODIUM 500 MG DR TABLET PO SCH (17:00)
[2021-07-29 00:15] VITALS: BP 108/74
[2021-07-29] MEDS: TOPIRAMATE 25 MG TABLET PO SCH ×2 (08:00→16:04)
[2021-07-29] MEDS: DIVALPROEX SODIUM 500 MG DR TABLET PO SCH ×2 (08:00→20:17)
[2021-07-29] MEDS: ACETAMINOPHEN 325 MG TABLET PO PRN (08:00)
[2021-07-29] MEDS: CarBAMazepine 200 MG ER TABLET PO SCH ×2 (08:00→16:04)
[2021-07-29 08:38] VITALS: BP 118/84
[2021-07-29 08:38] LABS: CARBAMAZEPINE (TEGRETOL) 3.6 mcg/mL (4.0-12.0); HCG,QUANTITATIVE < 1 mIU/mL (0-6)
[2021-07-29] MEDS: ALBUTEROL SULFATE HFA 90 MCG/PUFF 8 GM INHALER IH PRN ×2 (09:11→22:24)
[2021-07-29] MEDS: IBUPROFEN 600 MG TABLET PO PRN ×2 (10:13→16:27)
[2021-07-29 16:03] VITALS: BP 95/69
[2021-07-30 00:40] VITALS: BP 100/68
[2021-07-30] MEDS: IBUPROFEN 600 MG TABLET PO PRN (00:55)
[2021-07-30] MEDS: ALBUTEROL SULFATE HFA 90 MCG/PUFF 8 GM INHALER IH PRN (06:42)
[2021-07-30 08:01] VITALS: BP 105/70
[2021-07-30] MEDS: DIVALPROEX SODIUM 500 MG DR TABLET PO SCH ×2 (08:06→20:04)
[2021-07-30] MEDS: CarBAMazepine 200 MG ER TABLET PO SCH ×2 (08:06→16:01)
[2021-07-30] MEDS: TOPIRAMATE 25 MG TABLET PO SCH ×2 (08:06→16:01)
[2021-07-30] MEDS ORDERED: LORazepam 2 MG/ML VIAL ONE (12:03)
[2021-07-30] MEDS ORDERED: HALOPERIDOL LACTATE 5 MG/ML VIAL IM ONE (12:15)
[2021-07-30] MEDS ORDERED: LORazepam 2 MG/ML VIAL IM ONE (12:15)
[2021-07-30 16:57] VITALS: BP 116/76
[2021-07-31 00:34] VITALS: BP 114/72
[2021-07-31 06:30] VITALS: BP 118/74
[2021-07-31] MEDS: ALBUTEROL SULFATE HFA 90 MCG/PUFF 8 GM INHALER IH PRN (06:33)
[2021-07-31] MEDS: TOPIRAMATE 25 MG TABLET PO SCH ×2 (08:04→16:16)
[2021-07-31] MEDS: CarBAMazepine 200 MG ER TABLET PO SCH ×2 (08:04→16:16)
[2021-07-31] MEDS: DIVALPROEX SODIUM 500 MG DR TABLET PO SCH ×2 (08:04→20:39)
[2021-07-31 08:10] VITALS: BP 112/67
[2021-07-31 08:12] VITALS: BP 118/83
[2021-07-31] MEDS: IBUPROFEN 600 MG TABLET PO PRN (10:15)
[2021-07-31] MEDS: ACETAMINOPHEN 325 MG TABLET PO PRN (13:44)
[2021-07-31 16:40] VITALS: BP 113/75
[2021-07-31] MEDS ORDERED: FLUTICASONE PROPIONATE 50 MCG/SPRAY 16 GM NASAL SPRAY NASAL PRN (17:15)
[2021-07-31] MEDS: DiphenhydrAMINE HCL 25 MG CAPSULE PO PRN (18:27)
[2021-08-01] MEDS: DiphenhydrAMINE HCL 25 MG CAPSULE PO PRN ×2 (00:52→10:56)
[2021-08-01] MEDS: ALBUTEROL SULFATE HFA 90 MCG/PUFF 8 GM INHALER IH PRN ×2 (00:53→11:00)
[2021-08-01 02:36] VITALS: BP 126/80
[2021-08-01] MEDS: CarBAMazepine 200 MG ER TABLET PO SCH (08:43)
[2021-08-01] MEDS: TOPIRAMATE 25 MG TABLET PO SCH (08:43)
[2021-08-01] MEDS: DIVALPROEX SODIUM 500 MG DR TABLET PO SCH (08:43)
[2021-08-01 08:51] VITALS: BP 120/85
[2021-08-01] MEDS ORDERED: DIVA-112 PO (09:35)
== END 2021-08-01 12:30 | disposition home or self-care (01) | DRG 750 ==
LOC: EMS 09:21 → 3EC 14:30 → B3A 07-27 22:30
PROVIDERS: ADMIT Psychiatry & Neurology Psychiatry; ATTEND Psychiatry & Neurology Psychiatry
DX: F25.9 Schizoaffective disorder, unspecified (principal); Z91.19 Patient's noncompliance with other medical treatment and regimen; F41.9 Anxiety disorder, unspecified; Z20.822 Contact with and (suspected) exposure to COVID-19; G47.00 Insomnia, unspecified; J45.909 Unspecified asthma, uncomplicated; Z72.0 Tobacco use
CPT/HCPCS: 80053; 80156; 81001; 84443; 84702; 84703; 85025; 99285; G0480; J1200; J1630; J2060; J3535

== ENCOUNTER 2021-08-26 01:14 | Emergency (ER) | payer MEDICAID ==
[~2021-08-26] VITALS: Ht 167.6 cm; Wt 81.8 kg
[~2021-08-26 01:14] MED LIST changes: +DIVA-112 PO; -QUET200T5 PO
[2021-08-26 02:06] LABS: BASOPHILS % (AUTO) 0.5 % (0.0-2.0); EOSINOPHILS % (AUTO) 0.2 % (1.0-6.0); HEMATOCRIT 36.5 % (36-46); HEMOGLOBIN 12.3 g/dL (12.0-16.0); LYMPHOCYTES % (AUTO) 30.2 % (22.0-44.0); MEAN CORPUSCULAR HEMOGLOBIN 30.4 pg (26.0-34.0); MEAN CORPUSCULAR HGB CONC 33.7 G/dL (31.0-37.0); MEAN CORPUSCULAR VOLUME 90 fL (80-100); MONOCYTES # (AUTO) 0.4 K/uL (0.1-1.0); MONOCYTES % (AUTO) 6.5 % (2.0-9.0); NEUTROPHILS # (AUTO) 4.1 K/uL (1.8-7.7); NEUTROPHILS % (AUTO) 62.6 % (40.0-70.0); PLATELET COUNT (AUTO) 278 K/uL (150-450); RED BLOOD CELL COUNT(AUTO) 4.04 MIL/uL (4.00-5.20); RED CELL DISTRIBUTION WIDTH 14.4 % (11.5-14.5)
[2021-08-26 02:07] LABS: APPEARANCE,URINE CLEAR (CLEAR); BILIRUBIN,URINE NEGATIVE (NEGATIVE); GLUCOSE, URINE (UA) NEGATIVE (NEGATIVE); KETONES,URINE NEGATIVE (NEGATIVE); LEUKOCYTE ESTERASE ,URINE SMALL (NEGATIVE); NITRATE,URINE NEGATIVE (NEGATIVE); OCCULT BLOOD,URINE NEGATIVE (NEGATIVE); PH,URINE 6.5 (5.0-8.0); PROTEIN,URINE NEGATIVE (NEGATIVE); SPECIFIC GRAVITIY, URINE 1.026 (1.003-1.030); UROBILINOGEN,URINE <=1.0 mg/dL (<=1.0)
[2021-08-26 02:13] LABS: ANION GAP 10 mmol/L (8-16); CALCIUM, TOTAL 8.7 mg/dL (8.8-10.5); CARBON DIOXIDE 24 mmol/L (22-29); CHLORIDE 104 mmol/L (98-107); CREATININE 0.85 mg/dL (0.60-1.30); GLUCOSE,RANDOM 72 mg/dL (70-110); POTASSIUM 3.9 mmol/L (3.5-5.1); SODIUM SERUM 138 mmol/L (136-145); UREA NITROGEN, BLOOD 10 mg/dL (7-18)
[2021-08-26 02:15] LABS: GLOMERULAR FILTR. RATE CALC > 60 mL/min (>60)
[2021-08-26 02:18] LABS: BACTERIA,URINE None Seen /HPF (None Seen); RBC,URINE 0-2 /HPF (0-2); SQUAMOUS EPITHELIAL CELL,UR Few /LPF (None Seen)
[2021-08-26 02:24] LABS: ALANINE AMINOTRANSFERASE 16 U/L (12-78); ALBUMIN 3.3 g/dL (3.4-5.0); ALKALINE PHOSPHATASE 93 U/L (46-116); ASPARTATE AMINOTRANSFERASE 11 U/L (15-37); BILIRUBIN,TOTAL 0.2 mg/dL (0.1-1.0); HCG,QUANTITATIVE < 1 mIU/mL (0-6); LIPASE 69 U/L (73-393)
[2021-08-26 03:00] VITALS: BP 120/75
[2021-08-26] MEDS ORDERED: ACETAMINOPHEN 650 MG RECTAL SUPPOSITORY PR ONE (03:00)
[2021-08-26] MEDS: ACETAMINOPHEN 500 MG TABLET PO ONE (03:05)
== END 2021-08-26 03:31 | disposition home or self-care (01) ==
LOC: EMS 01:15
DX: M54.50 Low back pain, unspecified (principal); F31.9 Bipolar disorder, unspecified; J45.909 Unspecified asthma, uncomplicated; F17.210 Nicotine dependence, cigarettes, uncomplicated; Z88.0 Allergy status to penicillin; Z88.8 Allergy status to other drugs, medicaments and biological substances; Z79.899 Other long term (current) drug therapy
CPT/HCPCS: 80053; 81001; 83690; 84702; 85025; 87086; 99283

== ENCOUNTER 2022-12-28 15:04 | Emergency (ER) | payer MEDICAID ==
[~2022-12-28] VITALS: Ht 167.6 cm; Wt 97.3 kg
[~2022-12-28 15:04] MED LIST changes: +ALBU18HF12 IH; -ALBU8HFA IH; -DIVA-112 PO
[2022-12-28 15:18] VITALS: TEMP 98.2
[2022-12-28 15:38] LABS: COVID AG,FIA SOURCE NASAL SWAB
[2022-12-28 16:01] LABS: SARS-COV2 (COVID) ANTIGEN,FIA Negative (Negative)
[2022-12-28 16:31] VITALS: BP 106/66; PULSE 87; RESP 16
== END 2022-12-28 17:15 | disposition home or self-care (01) ==
LOC: EMS 15:47
DX: N93.9 Abnormal uterine and vaginal bleeding, unspecified (principal); J45.909 Unspecified asthma, uncomplicated; F31.9 Bipolar disorder, unspecified; F17.210 Nicotine dependence, cigarettes, uncomplicated; F12.90 Cannabis use, unspecified, uncomplicated; Z88.0 Allergy status to penicillin; Z88.8 Allergy status to other drugs, medicaments and biological substances; Z20.822 Contact with and (suspected) exposure to COVID-19
CPT/HCPCS: 99283; 87426; 84703; 87491; 87591; C9803; 99285